=== PATIENT | male | born 1960 | race Caucasian/White ===

== ENCOUNTER 2016-12-25 12:04 | Day surgery (SDC) | payer OTHER ==
[~2016-12-25] VITALS: Ht 167.6 cm; Wt 78.9 kg
[2016-12-25 12:44] VITALS: Ht 167.6 cm; Wt 78.9 kg
[2016-12-25] MEDS ORDERED: INSULIN SUBCUTANE (12:56)
[2016-12-25] MEDS ORDERED: LOSARTAN PO (12:56)
[2016-12-25] MEDS ORDERED: MAGN400T22 PO (12:56)
[2016-12-25] MEDS ORDERED: TAMS0.4C2 PO (12:56)
[2016-12-25] MEDS ORDERED: BUPR-75 PO (12:56)
[2016-12-25] MEDS ORDERED: FINA5TAB4 PO (12:56)
[2016-12-25] MEDS ORDERED: LAMO100T PO (12:56)
[2016-12-25] MEDS ORDERED: ATOR80TA75 PO (12:56)
[2016-12-25] MEDS ORDERED: LISI1TAB4 PO (12:56)
[2016-12-25] MEDS ORDERED: RISP2TAB3 PO (12:56)
[2016-12-25] MEDS ORDERED: METF500T PO (12:56)
[2016-12-25] MEDS ORDERED: GABA300C16 PO (12:56)
[2016-12-25] MEDS ORDERED: ASPI-535 PO (12:56)
[2016-12-25 13:15] VITALS: BP 160/72; PULSE 60; RESP 23
[2016-12-25] MEDS ORDERED: PROPOFOL 60 ML ONE (14:38)
[2016-12-25] MEDS ORDERED: LIDOCAINE 2% (SDV) 5 ML INJ ONE (14:38)
[2016-12-25] MEDS ORDERED: PROPOFOL 20 ML ONE (15:16)
--- NOTE | 2016-12-25 15:42 | OPPN ---
Date/Time of Note Date/Time of Note DATE: 12/25/16 TIME: 15:35 Operative Report Preoperative Diagnosis Colorectal cancer screening Postoperative Diagnosis Impression: * 8 mm sessile polyp mid descending colon. Snared and retrieved * Very large broad base 5-6 cm multinodular polyp distal descending colon. 2 cm base * Post piecemeal resection of 40% of the polyp plus localization tattoo * 1.5 cm sessile polyp sigmoid colon. * Post saline assisted polypectomy plus localization tattoo plus Endo Clip for closure * Moderate-sized internal hemorrhoids. Plan: * Clear liquid diet 24 hours * Close observation for evidence of complications * Review pathology as soon as available * Larger polyp is not endoscopically resectable without significant risk and may not be completely resectable * Follow-up as scheduled . Operation/Procedure Performed Colonoscopy with polypectomy Colonoscopy with localization tattoo Estimated blood loss: 10 - 50 ml's Transfusion Required: no Specimens Mid descending colon polyp Distal descending colon polyp Sigmoid colon polyp Grafts/Implants Endo Clip Complications: no MACIEL CORRIGAN MD Dec 25, 2016 15:41
[2016-12-25 16:10] VITALS: BP 157/74; PULSE 55; RESP 18
--- NOTE | 2016-12-25 18:03 | OPPN ---
Date/Time of Note Date/Time of Note DATE: 12/25/16 TIME: 17:59 Proc Note GI Free Text/Dictation Procedure Date: 12/25/2016 Preoperative Diagnosis: Colorectal cancer screening Postoperative Diagnosis: * 8 mm sessile polyp mid descending colon. Snared and retrieved * Very large broad base 5-6 cm multinodular polyp distal descending colon. 2 cm base * Post piecemeal resection of 40% of the polyp plus localization tattoo * 1.5 cm sessile polyp sigmoid colon. * Post saline assisted polypectomy plus localization tattoo plus Endo Clip for closure * Moderate-sized internal hemorrhoids. Plan: * Clear liquid diet 24 hours * Close observation for evidence of complications * Review pathology as soon as available * Larger polyp is not endoscopically resectable without significant risk and may not be completely resectable * Follow-up as scheduled Operation Performed: Colonoscopy with polypectomy/colonoscopy with localization tattoo Surgeon: Maciel Jean MD Vehicle Dynamics Engineer: None Second Deputy Sheriff Generalist/Bailiff: None Anesthesia/Sedation monitored anesthesia care/Dr. Crystal Tourniquet Time: NA Estimated Blood Loss: Minimal Transfusion Required: No Specimens: * Mid descending colon polyp * Distal descending colon polyp * Sigmoid colon polyp Grafts/Implants: None Tubes/Drains: NA Complications: None Pt. Condition Post Procedure: Stable Disposition: Home. Patient was advised to watch for evidence of complications such as fever, nausea vomiting, bleeding, abdominal pain and report immediately to the emergency room if such occurs After informed consent, with the patient/relatives understanding the procedure, its indications and potential risks and complications, including but not limited to: Allergic reaction, bleeding, perforation, infection, and after all pertinent questions were answered to the patient's satisfaction, the patient/ relatives signed the witnessed informed consent. Following this, premedication was administered slowly IV push under careful cardiovascular and respiratory monitoring with pulse [employer], automatic blood pressure, and food service manager. Once the sedative effect was achieved, the patient was placed in the left lateral decubitus position, digital rectal examination was performed. A colonoscope was then introduced and advanced under visual control throughout all segments of the colon including: [the rectum, sigmoid, descending colon, splenic flexure, transverse colon, hepatic flexure, ascending colon and finally reaching the cecum which was clearly identified by transillumination, finger indentation and the ileocecal valve.] Careful examination of the mucosa of the lower gastrointestinal tract both on insertion as well as withdrawal of the instrument disclosed the following findings: Preparation quality: [Adequate], Rectal Examination: The anorectal area was visualized examined and digital rectal examination performed with the following findings: [No evidence of perirectal disease, no masses.] Colonic mucosa: The mucosa of all segments of the colon was carefully examined and showed the following findings: There is an 8 mm sessile polyp in the mid descending colon. Snared and retrieved. There is a very large broad-based 5 or 6 cm multinodular polyp in the distal descending colon the bases estimated 2 cm we are able to obtain piecemeal resection approximately 40% of the polyp localization tattoo was applied. There is a 1.5 cm sessile polyp in the sigmoid colon polyp was removed with saline assisted polypectomy plus localization tattoo plus Endo Clip for closure of the margins. Moderate size internal hemorrhages are noted. Otherwise the examined mucosa appears within normal limits. There is no evidence of inflammatory changes, diverticular formation, other neoplasms, vascular malformation, or any other abnormality.] The instrument was then withdrawn, the patient tolerated the procedure well and was transferred out of the Endoscopy Suite awake and in good condition to continue recovery under observation. Procedure date: Dec 25, 2016 Estimated blood loss: 10 - 50 ml's Transfusion Required: no MACIEL JEAN MD Dec 25, 2016 18:03
== END 2016-12-25 17:28 | disposition home or self-care (01) ==
LOC: GIL 12:04
PROVIDERS: ATTEND Internal Medicine Gastroenterology
DX: Z12.11 Encounter for screening for malignant neoplasm of colon (principal); D12.4 Benign neoplasm of descending colon; D12.5 Benign neoplasm of sigmoid colon; K64.8 Other hemorrhoids; E11.9 Type 2 diabetes mellitus without complications; I10 Essential (primary) hypertension
CPT/HCPCS: 45380; 82962; Z7610

== ENCOUNTER 2017-09-09 12:35 | Day surgery (SDC) | END 2017-09-09 17:17 | disposition home or self-care (01) ==